=== PATIENT | female | born 1975 | race Caucasian/White ===

== ENCOUNTER → 2017-10-05 | Outpatient (CLI) | payer OTHER | LOC: CFH 13:22 | PROVIDERS: ATTEND Family Medicine | DX: D25.1 Intramural leiomyoma of uterus (principal) | CPT/HCPCS: 76830 ==

== ENCOUNTER 2019-06-21 07:49 | Outpatient (CLI) | payer OTHER | END 2019-06-21 23:59 | disposition home or self-care (01) | LOC: CFH 07:49 | PROVIDERS: ATTEND Family Medicine | DX: Z02.9 Encounter for administrative examinations, unspecified (principal) ==

== ENCOUNTER → 2019-06-21 | Outpatient (CLI) | payer OTHER | END | disposition home or self-care (01) | LOC: CFH 07:59 | PROVIDERS: ATTEND Family Medicine | DX: E04.9 Nontoxic goiter, unspecified (principal); N64.82 Hypoplasia of breast; N64.89 Other specified disorders of breast; N64.4 Mastodynia | CPT/HCPCS: 76536; 76642; 77066; G0279 ==